=== PATIENT | female | born 1975 | race Caucasian/White ===

== ENCOUNTER 2016-12-28 06:16 | Day surgery (SDC) | payer OTHER ==
[~2016-12-28] VITALS: Ht 160 cm; Wt 67.1 kg
[2016-12-28] MEDS ORDERED: PHENYLEPHRINE 1% 15 ML BTL NS ONE (08:44)
[2016-12-28] MEDS ORDERED: DEXT 5% / NACL 0.2% 1,000 ML IV SCH (09:09)
[2016-12-28] MEDS ORDERED: PROMETHAZINE 25 MG SUPP RC PRN (09:10)
[2016-12-28] MEDS ORDERED: ACETAMIN/CODEINE 120/12MG-5ML 5 ML UDC PO PRN (09:10)
[2016-12-28] MEDS ORDERED: guaiFENesin DM 200/20 MG-10 ML 10 ML UDC PO PRN (09:10)
[2016-12-28] MEDS ORDERED: DESFLURANE 240 ML BTL INH ONE (09:21)
[2016-12-28] MEDS ORDERED: LIDOCAINE 2% 100 MG/5 ML SYR IVP ONE (09:21)
[2016-12-28] MEDS ORDERED: PROPOFOL 200 MG/20 ML VIAL IV ONE (09:21)
[2016-12-28] MEDS ORDERED: DEXAMETHASONE 4 MG/ML VIAL ONE (09:21)
[2016-12-28] MEDS ORDERED: fentaNYL 0.05 MG/ML VIAL ONE (09:32)
[2016-12-28] MEDS ORDERED: MIDAZOLAM 2 MG/2 ML VIAL ONE (09:32)
[2016-12-28] MEDS ORDERED: DEXAMETHASONE 10 MG/ML VIAL ONE (09:42)
[2016-12-28] MEDS ORDERED: ONDANSETRON 4 MG/2 ML VIAL IVP PRN (09:45)
[2016-12-28] MEDS ORDERED: HYDROmorphone 1 MG/ML AMP IVP PRN (09:45)
[2016-12-28] MEDS ORDERED: ceFAZolin 1,000 MG VIAL ONE (09:47)
[2016-12-28] MEDS: HYDROmorphone PFS 2 MG/ML SYR ONE ×4 (10:35→11:07)
[2016-12-28] MEDS ORDERED: MEPERIDINE 50 MG/ML SYR IVP PRN (13:10)
== END 2016-12-28 14:35 | disposition home or self-care (01) ==
LOC: MDS 06:16 → MMU 06:18 → MDS 14:35
PROVIDERS: ATTEND Otolaryngology
DX: J38.1 Polyp of vocal cord and larynx (principal); J45.909 Unspecified asthma, uncomplicated; I12.9 Hypertensive chronic kidney disease with stage 1 through stage 4 chronic kidney disease, or unspecified chronic kidney disease; E11.22 Type 2 diabetes mellitus with diabetic chronic kidney disease; N18.9 Chronic kidney disease, unspecified; E66.3 Overweight; K21.9 Gastro-esophageal reflux disease without esophagitis; G40.909 Epilepsy, unspecified, not intractable, without status epilepticus; D64.9 Anemia, unspecified; F03.90 Unspecified dementia, unspecified severity, without behavioral disturbance, psychotic disturbance, mood disturbance, and anxiety; Z79.899 Other long term (current) drug therapy; Z83.3 Family history of diabetes mellitus; Z82.49 Family history of ischemic heart disease and other diseases of the circulatory system; Z80.3 Family history of malignant neoplasm of breast; F17.210 Nicotine dependence, cigarettes, uncomplicated
CPT/HCPCS: 31541; J0690; J1100; J1170; J2001; J2175; J2250; J2704; J3010; J7120

== ENCOUNTER 2019-08-20 06:18 | Day surgery (SDC) | payer OTHER ==
[2019-08-15 14:02] LABS: BASOPHILS % (AUTO) 0.3 % (0.0-2.0); EOSINOPHILS # (AUTO) 0.2 K/uL (0-0.4); EOSINOPHILS % (AUTO) 2.6 % (0.0-4.0); HEMATOCRIT 30.3 % (36-48); LYMPHOCYTES # (AUTO) 1.6 K/uL (2.5-16.5); LYMPHOCYTES % (AUTO) 27.9 % (20.5-51.1); MEAN CORPUSCULAR HEMOGLOBIN 26 pg (27-31); MEAN CORPUSCULAR HGB CONC 33 g/dL (33-37); MEAN CORPUSCULAR VOLUME 78.8 fL (80-94); MONOCYTES # (AUTO) 0.5 K/uL (0.8-1.0); MONOCYTES % (AUTO) 8.4 % (1.7-9.3); NEUTROPHILS # (AUTO) 3.5 K/uL (1.8-7.7); NEUTROPHILS % (AUTO) 60.8 % (42.2-75.2); PLATELET COUNT (AUTO) 193 K/uL (140-450); RED BLOOD CELL COUNT(AUTO) 3.85 MIL/uL (4.20-5.40); RED CELL DISTRIBUTION WIDTH 16.4 % (11.6-13.7); WHITE BLOOD COUNT (AUTO) 5.7 K/uL (4.8-10.8)
[2019-08-15 14:46] LABS: ALBUMIN 3.5 g/dL (3.4-5.0); ANION GAP 10.9 (8-16); CARBON DIOXIDE 28.8 mmol/L (21-32); CREATININE 0.5 mg/dL (0.6-1.3); POTASSIUM 3.7 mmol/L (3.5-5.1); TOTAL BILIRUBIN 0.4 mg/dL (0.0-1.0)
[~2019-08-20] VITALS: Ht 160 cm; Wt 68.0 kg
[2019-08-20] MEDS ORDERED: SEVOFLURANE 250 ML BTL INH ONE (09:04)
[2019-08-20] MEDS ORDERED: LIDOCAINE 2% 100 MG/5 ML SYR IVP ONE (09:04)
[2019-08-20] MEDS ORDERED: PROPOFOL 200 MG/20 ML VIAL IV ONE (09:04)
[2019-08-20] MEDS ORDERED: MIDAZOLAM 2 MG/2 ML VIAL ONE (09:04)
[2019-08-20] MEDS ORDERED: fentaNYL 0.05 MG/ML VIAL ONE (09:04)
[2019-08-20] MEDS ORDERED: ONDANSETRON 4 MG/2 ML VIAL IVP PRN (09:40)
[2019-08-20] MEDS: HYDROmorphone 1 MG/ML AMP IVP PRN ×4 (10:30→11:00)
[2019-08-20] MEDS ORDERED: HYDROmorphone PFS 2 MG/ML SYR ONE (10:37)
[2019-08-20] MEDS ORDERED: KETOROLAC 30 MG/ML VIAL ONE (11:53)
[2019-08-20] MEDS ORDERED: KETOROLAC 30 MG/ML VIAL IVP SCH (12:05)
[2019-08-20] MEDS ORDERED: diphenhydrAMINE 50 MG CAP PO SCH (12:25)
== END 2019-08-20 13:09 | disposition home or self-care (01) ==
LOC: MDS 06:18 → MMU 06:52 → MDS 13:09
PROVIDERS: ATTEND Obstetrics & Gynecology
DX: N92.0 Excessive and frequent menstruation with regular cycle (principal); K21.9 Gastro-esophageal reflux disease without esophagitis; Z98.51 Tubal ligation status
CPT/HCPCS: 36415; 58563; 80053; 84703; 85025; 93005; J1170; J1885; J2001; J2250; J2704; J3010; J7120; Q0163